=== PATIENT | female | born 1950 | race Caucasian/White ===

== ENCOUNTER 2021-06-19 20:20 | Emergency (ER) | payer MEDICARE, OTHER ==
[~2021-06-19] VITALS: Ht 167.6 cm; Wt 69.2 kg
[2021-06-19 21:31] LABS: GLUCOSE,POINT OF CARE 143 MG/DL (70-110)
[2021-06-19 22:10] LABS: BASOPHILS % (AUTO) 0.3 % (0.0-2.0); EOSINOPHILS % (AUTO) 0 % (1.0-6.0); HEMATOCRIT 41.3 % (36-46); HEMOGLOBIN 13.9 g/dL (12.0-16.0); LYMPHOCYTES # (AUTO) 0.8 K/uL (1.0-4.8); LYMPHOCYTES % (AUTO) 13.8 % (22.0-44.0); MEAN CORPUSCULAR HEMOGLOBIN 30.6 pg (26.0-34.0); MEAN CORPUSCULAR HGB CONC 33.8 G/dL (31.0-37.0); MEAN CORPUSCULAR VOLUME 91 fL (80-100); MONOCYTES # (AUTO) 0.5 K/uL (0.1-1.0); MONOCYTES % (AUTO) 9.2 % (2.0-9.0); NEUTROPHILS # (AUTO) 4.6 K/uL (1.8-7.7); NEUTROPHILS % (AUTO) 76.7 % (40.0-70.0); PLATELET COUNT (AUTO) 87 K/uL (150-450); RED BLOOD CELL COUNT(AUTO) 4.56 MIL/uL (4.00-5.20); RED CELL DISTRIBUTION WIDTH 14.2 % (11.5-14.5)
[2021-06-19 22:16] LABS: CALCIUM, TOTAL 8.7 mg/dL (8.8-10.5); CREATININE 1.16 mg/dL (0.60-1.30)
[2021-06-19 22:22] LABS: INR 1.1 (0.9-1.1); PROTHROMBIN TIME 11.4 SEC (9.4-11.6)
[2021-06-19 22:24] LABS: BILIRUBIN,TOTAL 0.6 mg/dL (0.1-1.0); TOTAL PROTEIN, SERUM 6.3 g/dL (6.4-8.2)
[2021-06-19 23:03] LABS: COVID AG,FIA SOURCE NASOPHARYNGEAL
[2021-06-20 00:19] VITALS: BP 135/74
== END 2021-06-20 00:26 | disposition home or self-care (01) ==
LOC: EMS 20:24
DX: U07.1 COVID-19 (principal); R55 Syncope and collapse
CPT/HCPCS: 80053; 82962; 84484; 85025; 85610; 85730; 93005; 99284